=== PATIENT | female | born 1995 | race Two or more races ===

== ENCOUNTER 2021-10-09 20:46 | Emergency (ER) | payer MEDICAID ==
[~2021-10-09] VITALS: Ht 157.5 cm; Wt 90.9 kg
[2021-10-09 23:24] LABS: Urine Amorphous Crystal FEW /hpf (None Seen); Urine Bacteria FEW /hpf (None Seen); Urine Blood Negative /uL (Negative); Urine Mucus FEW (None Seen); Urine WBC 9 /hpf (0 - 5)
[2021-10-10 03:45] VITALS: BP 134/92
[2021-10-10] MEDS ORDERED: KETOROLAC TROMETH 60MG/2ML VIAL IM ONE (03:45)
== END 2021-10-10 03:55 | disposition home or self-care (01) ==
LOC: ER 20:46
DX: S93.402A Sprain of unspecified ligament of left ankle, initial encounter (principal); X58.XXXA Exposure to other specified factors, initial encounter; Y93.01 Activity, walking, marching and hiking; Y92.89 Other specified places as the place of occurrence of the external cause; Y99.8 Other external cause status
CPT/HCPCS: 73560; 73590; 73610; 73630; 81001; 81025; 96372